=== PATIENT | male | born 1975 | race Caucasian/White ===

== ENCOUNTER 2017-04-20 11:09 | Emergency (ER) | payer OTHER ==
[2017-04-20 12:51] LABS: BILIRUBIN NEGATIVE (NEGATIVE); BLOOD NEGATIVE Ery/uL (NEGATIVE); CLARITY CLEAR (CLEAR); COLOR YELLOW (YELLOW); GLUCOSE (U) NORMAL (NORMAL); KETONE (U) NEGATIVE (NEGATIVE); LEUKOCYTES NEGATIVE Leu/uL (NEGATIVE); NITRITE NEGATIVE (NEGATIVE); PROTEIN 1+ mg/dL (NEGATIVE); SPECIFIC GRAVITY 1.015 (1.001-1.030); UROBILINOGEN 0.2 mg/dL (0.2-1.0)
[2017-04-20 13:01] LABS: AMORPHOUS URATES CRYSTALS TRACE; SPERM PRESENT; URINARY WBC RARE
== END 2017-04-20 14:51 | disposition home or self-care (01) ==
LOC: FER 11:09
PROVIDERS: Emergency Medicine
DX: S39.011A Strain of muscle, fascia and tendon of abdomen, initial encounter (principal); F31.9 Bipolar disorder, unspecified; Z79.899 Other long term (current) drug therapy; X58.XXXA Exposure to other specified factors, initial encounter; X50.0XXA Overexertion from strenuous movement or load, initial encounter
CPT/HCPCS: 76870; 81001; J1885

== ENCOUNTER 2020-09-20 06:07 | Emergency (ER) | payer OTHER ==
[2020-09-20 07:51] LABS: BASOPHIL 0.2 % (0-2); EOSINOPHIL 0.2 % (0-5); HGB 13.2 g/dl (13.2-18.0); LYMPHOCYTE 8.6 % (15-48); MCH 28.6 pg (25.0-31.0); MCHC 32.2 g/dL (32.0-36.0); MCV 88.9 fL (78.0-100.0); MONOCYTE 8.9 % (0-12); MPV 10.5 fL (6.0-9.5); NEUTROPHIL 81.8 % (41-80); NRBC 0; PLT 242 K/uL (150-400); RBC 4.61 M/uL (4.70-6.00); RDW 13.5 % (11.5-14.0); WBC 12.6 K/uL (4.0-10.5)
[2020-09-20 07:51] LABS: CORONAVIRUS 2019 SARS-COV-2 NEGATIVE (NEGATIVE); INFLUENZA A NAA NEGATIVE (NEGATIVE)
[2020-09-20 08:15] LABS: IRON % SATURATION 4.9 %SAT (20-50)
[2020-09-20 08:19] LABS: ALBUMIN 3.8 g/dL (3.4-5.0); BILIRUBIN - TOTAL 0.5 mg/dL (0.2-1.0); BUN/CREAT RATIO (CALC) 18.8 RATIO; C-REACTIVE PROTEIN 3.5 mg/dL (<=0.90); CREATININE 0.96 mg/dL (0.67-1.17); GLOBULIN (CALCULATION) 3.1 g/dL; POTASSIUM 3.9 mmol/L (3.5-5.1); TOTAL PROTEIN 6.9 g/dL (6.4-8.2)
[2020-09-20] MEDS ORDERED: VENTOLIN HFA18 GM INH (08:58)
[2020-09-20] MEDS ORDERED: VIBRAMYCIN100 MG PO (08:58)
[2020-09-20] MEDS ORDERED: MEDROL 4MG DOSEP4 MG PO (08:58)
[2020-09-20] MEDS ORDERED: NAPROXEN500 MG PO (08:58)
== END 2020-09-20 09:20 | disposition home or self-care (01) ==
LOC: FER 06:07
PROVIDERS: Emergency Medicine
DX: J22 Unspecified acute lower respiratory infection (principal); E61.1 Iron deficiency; Z20.822 Contact with and (suspected) exposure to COVID-19
CPT/HCPCS: 36415; 71045; 80053; 82728; 83540; 83550; 83605; 84145; 84443; 84484; 85025; 86140; 93005; U0002

== ENCOUNTER 2021-10-10 11:56 | Emergency (ER) | payer OTHER ==
[~2021-10-10 11:56] MED LIST: MEDROL 4MG DOSEP4 MG PO; NAPROXEN500 MG PO; VENTOLIN HFA18 GM INH; VIBRAMYCIN100 MG PO
[2021-10-10 13:14] LABS: INFLUENZA A NAA NEGATIVE (NEGATIVE)
[2021-10-10 13:17] LABS: CORONAVIRUS 2019 SARS-COV-2 POSITIVE (NEGATIVE)
[2021-10-10] MEDS ORDERED: MEDROL 4MG DOSEP4 MG PO (13:41)
[2021-10-10] MEDS ORDERED: VENTOLIN HFA IN18 GM INH (13:41)
== END 2021-10-10 14:00 | disposition home or self-care (01) ==
LOC: FER 11:56
PROVIDERS: Nurse Practitioner Family
DX: U07.1 COVID-19 (principal)
CPT/HCPCS: 71045; U0002

== ENCOUNTER 2022-03-14 10:43 | Emergency (ER) | payer OTHER ==
[~2022-03-14 10:43] MED LIST changes: +VENTOLIN HFA IN18 GM INH
[2022-03-14] MEDS ORDERED: PREDNISONE 20MG20 MG PO (12:53)
[2022-03-14] MEDS ORDERED: AMOX TR-K CLV1 EAC4 PO (12:53)
== END 2022-03-14 13:28 | disposition home or self-care (01) ==
LOC: FER 10:43
DX: L03.116 Cellulitis of left lower limb (principal); M70.52 Other bursitis of knee, left knee; Z28.310 Unvaccinated for COVID-19
CPT/HCPCS: 73564; 87070; 87205